=== PATIENT | female | born 1930 | race Caucasian/White ===

== ENCOUNTER 2017-04-05 08:31 | Emergency (ER) | payer MEDICARE, BC ==
[2017-04-05 08:51] VITALS: BP 162/67
--- NOTE | 2017-04-05 09:02 | UC ---
Upper Extremity HPI - HPI Summary HPI Summary: 86 y/o female presents to the urgent care c/o left lateral side wrist pain for the past 2 weeks. Pt doesn't recall any injury. Pt states pain is dull, 5/10 w/ certain movement at times. She has taken Tylenol PO which helps. Pt denies Hx of RA or osteoporosis. Pt denies, swelling, numbness or tingling over the RT hand or fingers, SOB, chest pain, abdominal pain N/V/D. - History of Current Complaint Chief Complaint: UCUpperExtremity Stated Complaint: WRIST PAIN Time Seen by Provider: 04/05/17 09:00 Hx Obtained From: Patient Onset/Duration: Gradual Onset, Lasting Weeks - 2 weeks, Still Present, Worse Since - yesterday Severity Initially: Mild Severity Currently: Moderate Pain Intensity: 5 Pain Scale Used: 0-10 Numeric Location Of Pain: Is Discrete @ - left wrist Character: Sharp - intermitten at times w/o any radiation Aggravating Factor(s): Movement Alleviating Factor(s): OTC Meds, Rest Associated Signs And Symptoms: Positive: Negative. Negative: Swelling, Redness , Bruising, Fever, Weakness, Numbness/Tingling - Risk Factors Non-Orthopedic Risk Factor: Negative DVT Risk Factors: Negative Septic Arthritis Risk Factor: Negative - Allergies/Home Medications Allergies/Adverse Reactions: Allergies Allergy/AdvReac Type Severity Reaction Status Date / Time rosuvastatin Allergy Intermediate Rash Verified 04/05/17 08:36 tetracycline Allergy Intermediate Rash Verified 04/05/17 08:36 Home Medications: Home Medications Albuterol 2.5MG/3ML (0.083%)* [Ventolin 2.5 MG/3 ML NEB.OSIEL*] 2.5 mg INH Q6H [History Confirmed 04/05/17] Diltiazem XR EXTEND Releas(NF) [Cartia XR (NF)] 240 mg PO DAILY 04/05/17 [ History Confirmed 04/05/17] Levothyroxine TAB* [Synthroid TAB*] 50 mcg PO DAILY 04/05/17 [History Confirmed 04/05/17] Omeprazole 20 mg PO DAILY WITH MEAL 04/05/17 [History Confirmed 04/05/17] Spironolactone 25 mg PO DAILY 04/05/17 [History Confirmed 04/05/17] PMH/Surg Hx/FS Hx/Imm Hx Previously Healthy: Yes Endocrine History: Hypothyroidism Cardiovascular History: Hypertension, Pacemaker/ICD GI/ History: Gastroesophageal Reflux - Surgical History Surgery Procedure, Year, and Place: OPEN HEART SURGERY X 2, [facility] -2002, VALVE REPLACED, - Family History Known Family History: Positive: Cardiac Disease, Hypertension - Social History Occupation: Retired Lives: With Family Alcohol Use: None Substance Use Type: None Smoking Status (MU): Former Smoker Length of Time of Smoking/Using Tobacco: 20 When Did the Patient Quit Smoking/Using Tobacco: 1979 Review of Systems Constitutional: Negative Skin: Negative Eyes: Negative ENT: Negative Respiratory: Negative Cardiovascular: Negative Gastrointestinal: Negative Genitourinary: Negative Motor: Negative Neurovascular: Negative Musculoskeletal: Other: - Left wrist pain Neurological: Negative Psychological: Negative Is Patient Immunocompromised?: No All Other Systems Reviewed And Are Negative: Yes Physical Exam Triage Information Reviewed: Yes Vital Signs: Initial Vital Signs Temp 98.2 F 04/05/17 08:44 Pulse 85 04/05/17 08:44 Resp 18 04/05/17 08:44 BP 162/67 04/05/17 08:44 Pulse Ox 100 04/05/17 08:44 - Additional Comments Vital Signs Reviewed: Yes General: Well-Appearing, No Pain Distress, Well-Nourished - female w/o any apparent distress Eyes: Positive: Conjunctiva Clear - PERRLA, EOMI ENT: Positive: Normal ENT inspection, Hearing grossly normal, Pharynx normal, TMs normal, Uvula midline Neck: Positive: Supple, Nontender, No Lymphadenopathy Respiratory: Positive: Chest non-tender, Lungs clear, Normal breath sounds, No respiratory distress Cardiovascular: Positive: RRR, No Murmur, Pulses Normal, Brisk Capillary Refill Abdomen Description: Positive: Nontender, No Organomegaly, Soft. Negative: CVA Tenderness (R), CVA Tenderness (L) Bowel Sounds: Positive: Present Musculoskeletal: Positive: Strength Intact, Other: Neurological Exam: Normal Musculoskeletal: Positive: Wrist: the L wrist is without obvious asymmetry or deformity when compared to the R wrist. No surface trauma, open wounds, swelling , or obvious deformity. No overlying erythema or warmth. No bony crepitus. Point tenderness over the lateral side of wrist. No scaphoid fullness or tenderness to direct palpation or axial load. FROM of writ. Good strength. Motor/sensory function of ulnar, radial, median nerves intact. Ulnar and radial pulses intact. Psychological Exam: Normal Skin Exam: Normal Upper Extremity Course/Dx - Course Course Of Treatment: 86 y/o female presents to the urgent care c/o left lateral side wrist pain for the past 2 weeks. Pt doesn't recall any injury. Pt states pain is dull, 5/10 w/ certain movement at times. She has taken Tylenol PO which helps. Pt denies Hx of RA or osteoporosis. Pt denies, swelling, numbness or tingling over the RT hand or fingers, SOB, chest pain, abdominal pain N/V/D.Hx obtained. LF wrist X-ray ordered. Impression: There was no fracture, dislocation , soft tissue swelling or FB noted. There is degenerative and osteophyte formation in some metacarpal bones. Most likely osteoarthritis. Daughter and PT advised to contineu taking tylenol to alleviate symptoms. Also advised to f/u with PCP of Orthopedic Dr is severe pain develops for further management. Pt's BP is elevated today advised to decrease salt in diet, monitor BP and f/u with PCP for further management. Daughter and Pt understood and agreed w/ plan of care. - Differential Dx/Diagnosis Differential Diagnosis/HQI/PQRI: Arthritis, Bursitis, Fracture (Closed), Strain , Sprain Provider Diagnoses: 1-Left acute wrist pain. 2-Uncontrolled HTN Discharge - Discharge Plan Condition: Stable Disposition: HOME Prescriptions: Acetaminophen TAB* [Tylenol TAB*] 650 mg PO Q6H PRN #30 tab PRN Reason: Pain Patient Education Materials: Osteoarthritis (ED), Low-Sodium Diet (ED) Referrals: Percy Bhat MD [Medical Doctor] - If Needed Herminia Mercado MD [Primary Care Provider] - 1 Week Additional Instructions: 1-Please take medications as directed to alleviate pain and swelling. 2- Please f/u with Orthopedic Dr bhat if symptoms worsen and severe pain develops for further evaluation and treatment. 3-Your BP is elevated today. please decrease salt in your diet, monitor BP and if it continues to be elevated please f/u with your PCP for further management
--- NOTE | 2017-04-05 09:40 | RAD ---
INDICATION: Atraumatic ulnar side left wrist pain x2 weeks COMPARISON: None. TECHNIQUE: 3 views left wrist. REPORT: The visualized bones are properly aligned and well corticated. Degenerative changes include sclerotic bony remodeling at the articulating surfaces of the distal scaphoid and trapezium with marginal osteophyte formation. The lesser extent similar degenerative changes are seen along the articulating surface of the proximal pole left thumb metacarpal. Overall there is joint space narrowing in the radiocarpal and intercarpal joints with the appearance of subchondral lucencies.There is no fracture, dislocation or other focal osseous abnormality. IMPRESSION: Degenerative changes of the wrist as described above. If the patient's symptoms persist, follow-up imaging is recommended.
== END 2017-04-05 10:00 | disposition home or self-care (01) ==
LOC: UCEAST 08:31
DX: M25.532 Pain in left wrist (principal); I10 Essential (primary) hypertension; E03.9 Hypothyroidism, unspecified; Z95.810 Presence of automatic (implantable) cardiac defibrillator; K21.9 Gastro-esophageal reflux disease without esophagitis; Z88.8 Allergy status to other drugs, medicaments and biological substances; Z87.891 Personal history of nicotine dependence
CPT/HCPCS: 99212; G0463